=== PATIENT | female | born 1990 | race Caucasian/White ===

== ENCOUNTER 2023-01-30 08:55 | Emergency (ER) | payer SELFPAY ==
[~2023-01-30] VITALS: Ht 165.1 cm; Wt 68.9 kg
[2023-01-30 09:08] VITALS: BP_SYST 119
[2023-01-30] MEDS ORDERED: EPINEPHRINE HCL/PF 1 MG/ML AMP IM ONE (09:15)
[2023-01-30] MEDS ORDERED: predniSONE 20 MG TABLET PO ONE (09:15)
[2023-01-30] MEDS ORDERED: DIPH25TA62 PO (10:02)
[2023-01-30] MEDS ORDERED: PRED20TA PO (10:02)
[2023-01-30 10:11] VITALS: BP_SYST 119
== END 2023-01-30 10:10 | disposition home or self-care (01) ==
LOC: SED 08:55
DX: L23.9 Allergic contact dermatitis, unspecified cause (principal); Z79.899 Other long term (current) drug therapy
CPT/HCPCS: 99283; 96374; 81025; J7512; J0171